=== PATIENT | female | born 1990 | race Two or more races ===

== ENCOUNTER → 2016-09-24 | Outpatient (CLI) | payer OTHER ==
--- NOTE | 2016-09-24 15:32 | KCIC ---
PROCEDURE Left knee 3 views. HISTORY Left knee pain, popping and clicking. FINDINGS No fractures are identified. Joint spaces and alignment maintained. There is only trace joint fluid. IMPRESSION - No fracture or clear degenerative. Electronically signed by: Yoni Stauffer (Sep 24, 2016 15:30:59)
== END | disposition home or self-care (01) ==
LOC: KCIC 15:00
PROVIDERS: ATTEND Physician Assistant Medical
DX: M25.562 Pain in left knee (principal)
CPT/HCPCS: 73562

== ENCOUNTER → 2017-01-20 | Outpatient (CLI) | payer OTHER ==
--- NOTE | 2017-01-20 15:38 | KCIC ---
Early OB ultrasound History: Vaginal bleeding, beta hCG is not doubling as expected. Beta hCG levels were 470 on January 14, 2017, 897 on January 17, 2017, and 1216 on January 19, 2017. Comparison: None. Technique: Transabdominal imaging was performed to evaluate optimally the uterine fundus. Endovaginal imaging was performed to evaluate optimally the lower uterine segment and to increase sensitivity for detection of intrauterine . Findings: Transabdominal imaging: Uterus measures 10.8 cm in length. No intrauterine is identified. Right ovary measures 2.0 x 1.3 x 3.0 cm. Right ovary has unremarkable appearance. Left ovary measures 2.6 x 1.3 x 2.6 cm and demonstrates a dominant follicle measuring 1.8 cm. No significant free fluid is identified. Endovaginal imaging: No intrauterine is identified. No free fluid is seen in the pelvis. Right ovary measures 1.8 x 3.3 x 1.7 cm and demonstrates a few follicles. Left ovary measures 3.0 x 3.4 x 2.2 cm and demonstrates a corpus luteum cyst measuring 2.3 cm. Both ovaries demonstrate normal vascular flow upon Doppler interrogation and are without evidence of torsion. No adnexal masses are seen. Small amount of endocervical fluid is seen. Impression: 1. No intrauterine is identified. No adnexal masses or free intraperitoneal hemorrhage is seen. With these findings, early intrauterine versus ectopic are possible. If clinically allowable, recommend serial beta hCG levels and pelvic ultrasound. 2. Small amount of endocervical fluid. Electronically signed by: Gautam Morgan MD (01/20/2017 3:35 PM) [place] [id number]
== END | disposition home or self-care (01) ==
LOC: KCIC US 13:06
PROVIDERS: ATTEND Physician Assistant
DX: N93.9 Abnormal uterine and vaginal bleeding, unspecified (principal)
CPT/HCPCS: 76801; 76817